=== PATIENT | female | born 1980 ===

== ENCOUNTER 2024-11-22 17:46 | Emergency (ER) | payer BC, SELFPAY ==
[2024-11-22 17:51] VITALS: BP 168/104
--- NOTE | 2024-11-22 18:15 | ED.GENMED ---
History of Present Illness
<Isaac Garduno PA-C - Last Filed: 11/22/24 20:39>
General
Chief Complaint: Blood Pressure Problem
Source: patient
Exam Limitations: none
Time Seen by Provider: 11/22/24 18:04
History of Present Illness
History of Present Illness:
44-year-old otherwise healthy female presents complaining of onset of chest tightness racing heart shortness of breath today. This was preceded by weeks worth of high blood pressure readings. She started lisinopril 20 mg took 1 yesterday and 1
today. 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 Ambulance came and picked her up. Currently she feels somewhat better since the onset of her symptoms. She denies any
recent travel or surgery. No leg swelling or calf pain. There has been some nausea. There has been no vomiting. No abdominal pain. No other complaints at this time
Phy Exam
<Isaac Garduno PA-C - Last Filed: 11/22/24 20:39>
Physical Exam
Physical Exam:
General: Well-appearing but anxious female no acute respiratory distress
HEENT: Normocephalic atraumatic heart: Regular rate and rhythm
Lungs: Clear no wheeze
Abdomen is soft nontender nondistended
Extremities: No cyanosis or edema
Skin is warm no rash neurologic: Slightly tremulous
Course
<Isaac Garduno PA-C - Last Filed: 11/22/24 20:39>
Orders/Labs/Results
Orders:
Orders
11/22/24 17:49
Electrocardiogram (*1) Urgent
Reason for Study: Chest Pain
EKG- Treatment ONCE
Test Result ONCE
11/22/24 18:04
Complete Blood Count/With Diff Urgent
Comprehensive Metabolic Panel Urgent
HCG, Serum Qualitative Screen Urgent
Comment: Notify provider if positive test present
Troponin I Urgent
11/22/24 18:18
CR Chest - 2 Views Urgent
Comment:
Reason For Exam: chest pain
Abnormal Lab Results
11/22/24
18:04
WBC 4.0 L 10^3/uL
(4.8-10.8)
RBC 3.79 L 10^6/uL
(4.20-5.40)
Hgb 11.1 L g/dL
(12.0-16.0)
Hct 32.4 L %
(37.0-47.0)
RDW 14.6 H %
(11.5-14.5)
Neutrophils % 39.7 L %
(42.2-75.2)
Monocytes % 10.0 H %
(1.7-9.3)
Glucose 109 H mg/dl
(70-99)
11/22/24 18:04
11/22/24 18:04
Vital Signs
Initial and Last Documented VS:
Initial Vital Signs
Pulse Resp BP Pulse Ox
88 17 168/104 100
11/22/24 17:51 11/22/24 17:51 11/22/24 17:51 11/22/24 17:51
Last Documented Vital Signs
Temp Pulse Resp BP Pulse Ox
98.2 F 83 18 151/95 100
11/22/24 19:25 11/22/24 19:20 11/22/24 19:25 11/22/24 19:20 11/22/24 19:28
<Candice Armijo MD - Last Filed: 11/22/24 20:34>
Orders/Labs/Results
Orders:
Orders
11/22/24 17:49
Electrocardiogram (*1) Urgent
Reason for Study: Chest Pain
EKG- Treatment ONCE
Test Result ONCE
11/22/24 18:04
Complete Blood Count/With Diff Urgent
Comprehensive Metabolic Panel Urgent
HCG, Serum Qualitative Screen Urgent
Comment: Notify provider if positive test present
Troponin I Urgent
11/22/24 18:18
CR Chest - 2 Views Urgent
Comment:
Reason For Exam: chest pain
Abnormal Lab Results
11/22/24
18:04
WBC 4.0 L 10^3/uL
(4.8-10.8)
RBC 3.79 L 10^6/uL
(4.20-5.40)
Hgb 11.1 L g/dL
(12.0-16.0)
Hct 32.4 L %
(37.0-47.0)
RDW 14.6 H %
(11.5-14.5)
Neutrophils % 39.7 L %
(42.2-75.2)
Monocytes % 10.0 H %
(1.7-9.3)
Glucose 109 H mg/dl
(70-99)
11/22/24 18:04
11/22/24 18:04
Vital Signs
Initial and Last Documented VS:
Initial Vital Signs
Pulse Resp BP Pulse Ox
88 17 168/104 100
11/22/24 17:51 11/22/24 17:51 11/22/24 17:51 11/22/24 17:51
Last Documented Vital Signs
Temp Pulse Resp BP Pulse Ox
98.2 F 83 18 151/95 100
11/22/24 19:25 11/22/24 19:20 11/22/24 19:25 11/22/24 19:20 11/22/24 19:28
<Isaac Garduno PA-C - Last Filed: 11/22/24 20:39>
MDM/Problems Addressed
Differential Diagnosis Includes:
Patient with racing heart shortness of breath chest tightness onset while driving home from work. Question arrhythmia versus ACS. No risk factors or vital signs to suggest PE. Question also anxiety response. Will check labs. EKG through triage
shows sinus rhythm without ischemic changes. Chest x-ray pending
<Isaac Garduno PA-C - Last Filed: 11/22/24 20:39>
*Critical Care Note
Total Time (30-74mins, 75-104mins- exclusive of procedures): Not Applicable
<Isaac Garduno PA-C - Last Filed: 11/22/24 20:39>
Update Note
Update Note:
Workup here unremarkable. Chest x-ray clear. No arrhythmias noted on monitor. Cardiac enzyme negative. No sign of ACS at this time. Do not suspect PE or dissection. Question possible anxiety or panic attack. She will continue her lisinopril
and follow-up with family doctor. Stable for discharge
ED Attending Note
<Isaac Garduno PA-C - Last Filed: 11/22/24 20:39>
-
Portions of this chart may have been created with voice recognition software.� Occasional wrong word or��sound alike� substitutions may have occurred due to the inherent limitations of voice recognition software.
<Candice Armijo MD - Last Filed: 11/22/24 20:34>
ED Attending Note
Patient seen and examined by attending physician: Yes
I performed the substantive portion of visit, reviewed & personally made and approve the management plan that is documented in note by myself or LUCILA.: Yes
ED Attending Note:
44-year-old female who notes that she checks her blood pressure regularly and has been elevated for the last 2 weeks. She was prescribed lisinopril in the past with hypertension associated with but never took it. However, over the last
few days she has taken it. Today, while driving, she felt very anxious associated with palpitations and shortness of breath and just not well. She drove back to work to have her blood pressure checked. She now feels significantly better and she
believes her symptoms were related to her elevated blood pressure. She has Sunday of other nonspecific complaints including intermittent 'nerve pain' in the right jaw and right lateral face area, intermittent tightness, etc. No focal findings
noted on exam. Neurologically intact, speech clear, no facial droop. Workup here unremarkable. Patient advised to resume lisinopril daily, document her blood pressure daily, see her PCP this week for further follow-up, advised regarding reasons
return to the ER.
Discharge Plan
Departure
Patient Disposition: Home (Routine Discharge)
Date of Disposition: 11/22/24
Time of Disposition: 20:36
Patient with high blood pressure during this ER visit?: No
Discharge Problem:
Palpitations
Prescriptions:
No Action
lisinopril 10 mg Tablet
10 mg PO DAILY PRN (Reason: high bp)
Referrals:
Ken López I., DO [Active] -
UNKNOWN - PT DOES,NOT KNOW [Family Provider] -
Activity Restrictions/Additional Instructions:
Continue your lisinopril. Please return here for worsening symptoms otherwise follow-up with family doctor
Interventions
Interventions:
*Risk Screen - Suicide Last Done: 11/22/24 18:11
*General Assessment Last Done: 11/22/24 18:18
*Neglect/Abuse Screening Last Done: 11/22/24 18:10
*ED- Fall Risk Assessment Last Done: 11/22/24 18:10
*ED COVID-19 Vaccine History Last Done: 11/22/24 18:18
ED- Cardiac Assessment Last Done: 11/22/24 19:27
ED- Neurological Assessment Last Done: 11/22/24 19:28
ED- Pulmonary Assessment Last Done: 11/22/24 19:28
Discharge Date and Time
Print Language: DANISH
[2024-11-22 18:19] VITALS: BMI 26.6
[2024-11-22 18:19] LABS: Hematocrit 32.4 % (37.0-47.0); Hemoglobin 11.1 g/dL (12.0-16.0); Mean Corp Hgb Conc. 34.3 g/dL (33.0-37.0); Mean Corpuscular Hgb 29.3 pg (27.0-31.0); Mean Corpuscular Volume 85.5 fL (81.0-99.0); Mean Platelet Volume 10.3 fL (7.4-10.4); Platelet Count 266 10^3/uL (130-400); Red Blood Cell Count 3.79 10^6/uL (4.20-5.40); Red Cell Dist. Width 14.6 % (11.5-14.5)
[2024-11-22 18:24] LABS: HCG, Serum Qualitative Screen Negative
[2024-11-22 18:28] LABS: ALT (SGPT) 26 U/L (0-35); AST (SGOT) 31 U/L (14-36); Albumin 4.9 g/dl (3.5-5.0); Alkaline Phosphatase 54 U/L (38-126); Blood Urea Nitrogen 15 mg/dl (7-17); Calcium 9.6 mg/dl (8.4-10.2); Carbon Dioxide 24 mmol/L (22-30); Chloride 105 mmol/L (98-107); Estimated Creatinine Clearance 85 ml/min; Glucose 109 mg/dl (70-99); Potassium 3.6 mmol/L (3.5-5.1); Sodium 137 mmol/L (135-145); Total Bilirubin 0.5 mg/dl (0.2-1.3); Total Protein 7.3 g/dl (6.3-8.2); eGFR > 60.00
[2024-11-22 18:30] VITALS: BP 159/93
[2024-11-22 18:40] LABS: Troponin I < 0.012 ng/ml
[2024-11-22 18:43] LABS: % Lymphocytes 47.3 % (20.5-51.1); % Neutrophils 39.7 % (42.2-75.2); Absolute Eosinophils 0.1 10^3/uL (0-0.7); Absolute Lymphocytes 1.9 10^3/uL (1.2-3.4); Absolute Monocytes 0.4 10^3/uL (0.1-0.6); Absolute Neutrophils 1.6 10^3/uL (1.4-6.5); Nucleated Red Blood Cells % 0 %
[2024-11-22 19:20] VITALS: BP 151/95
[2024-11-22 19:30] VITALS: BP 146/86
[2024-11-22 20:00] VITALS: BP 144/90
[2024-11-22 20:30] VITALS: BP 143/92
== END 2024-11-22 21:06 | disposition home or self-care (01) ==
LOC: EMR 17:46
PROVIDERS: Student in an Organized Health Care Education/Training Program; EMERGENCY PHYSICIAN Emergency Medicine
DX: R00.2 Palpitations (principal); R11.0 Nausea
CPT/HCPCS: 99283; 71046; 80053; 84484; 84703; 85025; 93005